=== PATIENT | male | born 1955 | race Caucasian/White ===

== ENCOUNTER 2016-10-05 12:53 | Emergency (ER) | payer BC ==
[~2016-10-05] VITALS: Ht 185.4 cm; Wt 78.7 kg
[2016-10-05 12:57] VITALS: TEMP 36.7; Ht 185.4 cm; Wt 78.7 kg
[2016-10-05] MEDS ORDERED: ESCI10TA17 PO (13:19)
[2016-10-05] MEDS ORDERED: SODIUM CHLORIDE 0.9% 1000ML 1,000 ML IV STA (13:45)
[2016-10-05] MEDS ORDERED: ONDANSETRON INJ 2 MG/ML 2 ML VIAL IV STA (13:45)
[2016-10-05] MEDS ORDERED: MoRPHine SULFATE 10 MG/ML CARP/VIAL IV PRN (13:45)
[2016-10-05 13:59] LABS: BASO % 0.2 %; BASO ABS # 0.02 K/uL (0-0.2); COMPLETE YES; EOS % 0.7 %; HEMATOCRIT 46.4 % (42-52); IG% 0.2 %; LYMPH ABS # 1.39 K/uL (1.2-3.4); MEAN CELL VOLUME 85.3 fL (80-100); MEAN CORPUSCULAR HEMOGLOBIN 30.5 pg (25-34); MEAN CORPUSCULAR HGB CONC 35.8 g/dl (32-36); MEAN PLATELET VOLUME 8.9 fL (7.4-10.4); MONO % 15.3 %; NEUT % 66.6 %; PLATELET COUNT 183 K/uL (130-400); RED BLOOD COUNT 5.44 M/uL (4.7-6.1); WHITE BLOOD COUNT 8.16 K/uL (4.8-10.8)
[2016-10-05] MEDS ORDERED: OPTIRAY 320 IV PRN (14:00)
[2016-10-05 14:08] LABS: BUN/CREATININE RATIO 26.3 (10-20); CALCIUM 9.4 mg/dl (8.5-10.1); CREATININE 1.1 mg/dl (0.60-1.40)
[2016-10-05 14:13] LABS: URINE APPEARANCE TURBID (CLEAR); URINE BILIRUBIN NEG (NEG); URINE COLOR DK YELLOW; URINE EPITHELIAL CELL AUTO 0-5 /lpf (0-5); URINE NITRITE NEG (NEG); UROBILINOGEN NEG (NEG)
[2016-10-05 14:20] LABS: MANUAL MICROSCOPIC REQUIRED? NO; REVIEW REQ? NO
--- NOTE | 2016-10-05 17:00 | DIAGNOSTIC IMAGING REPORT ---
CT ABD/PELVIS IV AND ORAL CONT CLINICAL HISTORY: ABDOMINAL PAIN/GI COMPARISON STUDY: None TECHNIQUE: Following the IV administration of 115 mL of Optiray-320, CT scan of the abdomen and pelvis was performed from the lung bases to the proximal femurs. Images are reviewed in the axial, sagittal, and coronal planes. IV contrast was administered without complication. CT DOSE: 470.66 mGy.cm FINDINGS: Lower chest: There are mild dependent atelectatic changes. Liver: There is hepatic steatosis. No focal masses are visualized. Gallbladder: Surgically absent Spleen: Normal in size and attenuation. Pancreas: Unremarkable. Adrenal glands: Unremarkable. Kidneys: There is a 3 cm right renal cyst. No solid renal masses are visualized. There is no hydronephrosis. Bowel: There are no transition zones indicate bowel obstruction. There is no evidence of acute diverticulitis. Terminal ileum appears normal. There are no findings to indicate acute appendicitis. Peritoneum: There is no intraperitoneal free air or abdominal ascites. There are small fat-containing inguinal hernias versus lipomatous inguinal canals Vasculature: The abdominal aorta is normal in course and caliber. Adenopathy: None. Pelvic viscera: The bladder, and pelvic viscera are unremarkable. Skeletal structures: No destructive osseous lesions are seen. IMPRESSION: 1. No evidence of bowel obstruction. No evidence of free air 2. No evidence of acute diverticulitis 3. No evidence of acute appendicitis 4. Hepatic steatosis Electronically signed by: Nestor Turcios M.D. 10/05/2016 4:58 PM Dictated Date/Time: 10/05/2016 4:53 PM
[2016-10-05 17:29] VITALS: BP 138/77; PULSE 86; O2SAT 96
--- NOTE | 2016-10-05 20:35 | EMERGENCY ROOM VISIT NOTE ---
ED Visit Note First contact with patient: 13:00 Chief Complaint: Abdominal pain. History of Present Illness: Mr. Laws is a 61 year-old white male complaining of left lower quadrant abdominal pain. Historically patient reports Patient reports ongoing symptoms since Tuesday, 4 days ago. He reports he was working outside for extended period time in the sun and when he went back into the house 5-6 hours later he reports he was fatigued and was nauseated. For 2 days he reports having these waves of sensations of not feeling well. Then 2 days ago he started experiencing left lower quadrant abdominal pain. Since that time the pain has been constant but has waxed and waned in intensity once again in what he describes as waves. He reports his underlying pain as an achy pressure sensation just left of the umbilicus in the mid quadrant and then his waves, it become sharp in nature. Currently he rates his discomfort 3/10. At its worse he rates his discomfort 10/10. His pain is nonradiating. His pain worsens with palpation in bowel movements. He has not identified any alleviating factors related to the pain. Associated with his pain he reports he has been having intermittently runny stools but then also he strains to move his bowels and sometimes they are described as thin and stringy. He has not taken any medication for pain prior to arrival at the hospital. Associated with his pain he reports he's had a mild decrease in appetite and has been nauseated but has not vomited. Patient denies skin eruptions, skin color changes, upper respiratory tract symptoms, shortness of breath, chest pain, rectal bleeding, black/tarry stools, urinary symptoms, hematuria, back/flank pain. Review of Systems: As noted above in history of present illness. All body systems were reviewed and found to be negative as noted above. Past Medical History: Patient denies. Current Medications: Lexapro. Allergies to Medications: Patient denies. Social History: Patient is currently employed; he feels safe in his home environment; he denies tobacco and alcohol use. Physical Examination: Vital Signs: Date Time Temp Pulse Resp B/P (MAP) Pulse Ox O2 Delivery O2 Flow Rate FiO2 10/05/16 17:29 86 20 138/77 96 Room Air 10/05/16 15:33 87 17 149/83 98 Room Air 10/05/16 14:38 78 20 97 10/05/16 14:31 137/83 6/13/17 14:23 77 13 97 10/05/16 14:08 85 21 97 10/05/16 14:01 159/92 10/05/16 13:53 90 20 95 10/05/16 13:38 95 23 96 10/05/16 13:31 100/78 10/05/16 13:23 100 18 94 10/05/16 13:20 99 10/05/16 13:17 131/94 10/05/16 12:57 36.7 116 18 136/78 97 Room Air GENERAL: 61-year-old male in mild distress due to pain, nontoxic-appearing, afebrile and hemodynamically stable. NEUROLOGICAL: Awake, alert and oriented to person, place and time. Answering questions appropriately and following commands. Normal gait. Good hand eye coordination. SKIN: Warm, dry and pink. No soft tissue eruptions or trauma noted. HEENT: Atraumatic and normocephalic. PERRL. Sclera white and conjunctiva pink. Oral cavity moist and pink. Pharynx is nonerythematous or edematous. Speech normal. No lymphadenopathy. Trachea midline. No jugular venous distention. BACK: No tenderness over the bony spine. No CVA tenderness. THORAX: Lungs sounds are clear to auscultation and equal bilaterally with symmetrical chest wall. No wheezing, rales or rhonchi. No crepitus, tenderness , subcutaneous air or deformities noted. HEART: Regular rate and rhythm. No gallops, rubs or murmurs are appreciated. ABDOMEN: Flat and soft with moderate tenderness and guarding when palpating just lateral to the mid umbilicus on the left. There is also moderate tenderness without guarding in the left lower quadrant. Positive bowel sounds in all quadrants. No rigidity or organomegaly. EXTREMITIES: Moves all extremities well on command and with purpose. All distal neurovascular statuses are intact and equal bilaterally. ED Course: Patient is assessed as noted above. Laboratory Testing: Test 10/05/16 13:25 Range/Units White Blood Count 8.16 4.8-10.8 K/uL Red Blood Count 5.44 4.7-6.1 M/uL Hemoglobin 16.6 14.0-18.0 g/dL Hematocrit 46.4 42-52 % Mean Corpuscular Volume 85.3 80-100 fL Mean Corpuscular Hemoglobin 30.5 25-34 pg Mean Corpuscular Hemoglobin Concent 35.8 32-36 g/dl Platelet Count 183 130-400 K/uL Mean Platelet Volume 8.9 7.4-10.4 fL Neutrophils (%) (Auto) 66.6 % Lymphocytes (%) (Auto) 17.0 % Monocytes (%) (Auto) 15.3 % Eosinophils (%) (Auto) 0.7 % Basophils (%) (Auto) 0.2 % Neutrophils # (Auto) 5.42 1.4-6.5 K/uL Lymphocytes # (Auto) 1.39 1.2-3.4 K/uL Monocytes # (Auto) 1.25 0.11-0.59 K/uL Eosinophils # (Auto) 0.06 0-0.5 K/uL Basophils # (Auto) 0.02 0-0.2 K/uL RDW Standard Deviation 41.2 36.4-46.3 fL RDW Coefficient of Variation 13.2 11.5-14.5 % Immature Granulocyte % (Auto) 0.2 % Immature Granulocyte # (Auto) 0.02 0.00-0.02 K/uL Urine Color DK YELLOW Urine Appearance TURBID CLEAR Urine pH 5.0 4.5-7.5 Urine Specific [place] 1.030 1.000-1.030 Urine Protein NEG NEG Urine Glucose (UA) NEG NEG Urine Ketones TRACE NEG Urine Occult Blood TRACE NEG Urine Nitrite NEG NEG Urine Bilirubin NEG NEG Urine Urobilinogen NEG NEG Urine Leukocyte Esterase NEG NEG Urine WBC (Auto) 1-5 0-5 /hpf Urine RBC (Auto) 0-4 0-4 /hpf Urine Hyaline Casts (Auto) 1-5 0-5 /lpf Urine Epithelial Cells (Auto) 0-5 0-5 /lpf Urine Bacteria (Auto) NEG NEG Sodium Level 141 136-145 mmol/L Potassium Level 4.0 3.5-5.1 mmol/L Chloride Level 107 98-107 mmol/L Carbon Dioxide Level 25 21-32 mmol/L Anion Gap 9.0 3-11 mmol/L Blood Urea Nitrogen 29 7-18 mg/dl Creatinine 1.10 0.60-1.40 mg/dl Est Creatinine Clear Calc Drug Dose 76.5 ml/min Estimated GFR () 82.4 Estimated GFR (Non- 71.1 BUN/Creatinine Ratio 26.3 10-20 Random Glucose 117 70-99 mg/dl Calcium Level 9.4 8.5-10.1 mg/dl Total Bilirubin 1.0 0.2-1 mg/dl Direct Bilirubin 0.1 0-0.2 mg/dl Aspartate Amino Transf (AST/SGOT) 34 15-37 U/L Alanine Aminotransferase (ALT/SGPT) 67 12-78 U/L Alkaline Phosphatase 93 45-117 U/L Total Protein 8.0 6.4-8.2 gm/dl Albumin 4.0 3.4-5.0 gm/dl Lipase 399 73-393 U/L Contrast Abdominal/Pelvic CT: Was reviewed by myself and read by the radiologist showing no evidence of bowel obstruction, free air, acute diverticulitis, acute appendicitis. Hepatic steatosis. On my review the CT scan he appeared to have increased fecal load. Patient's medications were reviewed by myself. Patient was hydrated with normal saline and received 4 mg of morphine IV for pain and 4 mg of Zofran IV. Patient was reassessed multiple times during his stay in the emergency department. Patient's case was reviewed with Dr. Amaya; we agreed on diagnostic approach, treatment, disposition and plan. Patient was educated about today's findings and instructed on his treatment plan ; he verbalizes understanding and agreement with this plan. Clinical Impression: Left lower quadrant abdominal pain. Increased fecal load. Decision-Making: Initially my differential diagnosis I considered diverticulitis , bowel obstruction, perforated viscus, constipation, pancreatitis, kidney stone and other causes. Disposition: Patient discharged home in stable condition accompanied by his ; prior to departure she was reassessed and subjectively reported he was feeling much better and rated his discomfort 1/10. Plan: Patient was encouraged to alternate ibuprofen and acetaminophen as needed for pain. Patient was encouraged to use OTC Colace once a day. Patient was encouraged to increase dietary fiber including fruits, vegetables and whole bran foods Patient was encouraged to follow-up with personal physician for recheck in 2-3 days. Patient was encouraged return the ED for worsening symptoms, uncontrolled vomiting, bloody stools, black/tarry stools fevers, or any new/concerning symptoms.
== END 2016-10-05 17:57 | disposition home or self-care (01) ==
LOC: C.EDB 12:55
DX: R10.32 Left lower quadrant pain (principal); Z79.899 Other long term (current) drug therapy

== ENCOUNTER 2016-10-17 11:11 | Emergency (ER) | payer BC ==
[~2016-10-17] VITALS: Ht 185.4 cm; Wt 79.2 kg
[~2016-10-17 11:11] MED LIST: ESCI10TA17 PO
[2016-10-17 11:14] VITALS: TEMP 36.7; Ht 185.4 cm; Wt 79.2 kg
[2016-10-17] MEDS ORDERED: SODIUM CHLORIDE 0.9% 1000ML 1,000 ML IV STA (11:34)
[2016-10-17] MEDS ORDERED: KETOROLAC TROMETHAMINE 30 MG/ML VIAL IV STA (11:34)
[2016-10-17] MEDS ORDERED: ONDANSETRON INJ 2 MG/ML 2 ML VIAL IV STA (11:34)
[2016-10-17 12:06] LABS: BASO % 0.2 %; BASO ABS # 0.02 K/uL (0-0.2); COMPLETE YES; EOS % 0.9 %; HEMATOCRIT 43.7 % (42-52); IG% 0.4 %; LYMPH % 7.2 %; LYMPH ABS # 0.71 K/uL (1.2-3.4); MEAN CELL VOLUME 87.8 fL (80-100); MEAN CORPUSCULAR HEMOGLOBIN 29.9 pg (25-34); MEAN CORPUSCULAR HGB CONC 34.1 g/dl (32-36); MEAN PLATELET VOLUME 8.6 fL (7.4-10.4); MONO % 6.8 %; NEUT % 84.5 %; PLATELET COUNT 234 K/uL (130-400); RED BLOOD COUNT 4.98 M/uL (4.7-6.1)
[2016-10-17 12:18] LABS: BUN/CREATININE RATIO 20.8 (10-20); CREATININE 1.1 mg/dl (0.60-1.40); POTASSIUM 4.3 mmol/L (3.5-5.1)
--- NOTE | 2016-10-17 12:41 | DIAGNOSTIC IMAGING REPORT ---
Hernia ABDOMEN FOR HERNIA CLINICAL HISTORY: L groin pain pain TECHNIQUE: Ultrasound COMPARISON STUDY: None FINDINGS: Reducible fat-containing left inguinal hernia. No evidence of bowel containment. IMPRESSION: Reducible fat-containing left inguinal hernia. No evidence of bowel containment. Electronically signed by: Kentrell Ramires M.D. 10/17/2016 12:40 PM Dictated Date/Time: 10/17/2016 12:39 PM
[2016-10-17 13:47] LABS: URINE APPEARANCE CLOUDY (CLEAR); URINE COLOR DK YELLOW; URINE EPITHELIAL CELL AUTO 20-30 /lpf (0-5); URINE NITRITE NEG (NEG); URINE SPECIFIC GRAVITY 1.027 (1.000-1.030); UROBILINOGEN NEG (NEG); ZZUR CULT IF INDIC CLEAN CATCH NO
[2016-10-17 14:04] LABS: MANUAL MICROSCOPIC REQUIRED? NO; REVIEW REQ? NO
[2016-10-17 14:05] LABS: URINE BILIRUBIN NEG (NEG)
[2016-10-17] MEDS ORDERED: DOXYCYCLINE HYCLATE 100 MG CAP PO ONE (14:30)
[2016-10-17] MEDS ORDERED: DOXY100C PO (14:31)
[2016-10-17 15:06] VITALS: BP 138/84; PULSE 89; O2SAT 96
--- NOTE | 2016-10-17 16:53 | EMERGENCY ROOM VISIT NOTE ---
History Report prepared by Braulio: Tory Cabrera Under the Supervision of: Dr. Andrews Andrse D.O. First contact with patient: 11:18 Chief Complaint: GI ASSESSMENT Stated Complaint: PAIN/ACHE History of Present Illness The patient is a 61 year old male who presents to the Emergency Room with complaints of constant achiness beginning 5 days ago. The patient states that he was seen here on the for left lower quadrant pain and had a CT of the abdomen/pelvis that was normal. He notes that he was started Colace and after leaving the hospital he reports that he had relief of his pain with the medication. He states that he had improvement of his symptoms on the following day and left for a vacation in [place] 2 days following his visit but stopped taking the Colace when he had to fly. He reports that he has had two 3 day episodes of extreme fatigue and tiredness and slept for those days. The patient notes that his pain is improved after he has a bowel movement but is worsened during the bowel movement. He states that straining causes left groin pain and when he eats he experiences LLQ pain but has not had any today. He notes that he has been avoiding food over the last few weeks to avoid the left lower quadrant pain. The patient complains of tiredness, right ear pain and a rash on his back that he noticed this morning. He notes that the rash is not painful or itchy. He denies any itchiness, new medications, new foods, blood in the stool, current abdominal pain, urinary symptoms, cough, runny nose. He states that he has not pulled any ticks of of him and does not spend too much time outside. The patient notes that his last bowel movement was this morning and he has had a bowel movement almost every day in the last week. Source of History: patient Onset: 5 days ago Position: other (global) Quality: other (achiness) Timing: constant Associated Symptoms: No abdominal pain, No urinary symptoms Note: The patient complains of tiredness, right ear pain and a rash on his back that he noticed this morning. He denies any itchiness, new medications, new foods, blood in the stool, Review of Systems See HPI for pertinent positives & negatives. A total of 10 systems reviewed and were otherwise negative. Past Medical & Surgical Medical Problems: (1) Anxiety Family History Patient reports no known family medical history. Social History Smoking Status: Never Smoker Marital Status: Housing Status: lives with significant other Occupation Status: retired Current/Historical Medications Scheduled Doxycycline Hyclate (Vibramycin), 100 MG PO BID Escitalopram (Lexapro), 10 MG PO HS Allergies Coded Allergies: No Known Allergies (Unverified , 10/17/16) Physical Exam Vital Signs Date Time Temp Pulse Resp B/P (MAP) Pulse Ox O2 Delivery O2 Flow Rate FiO2 10/17/16 15:06 89 17 138/84 96 10/17/16 13:40 85 17 123/76 95 Room Air 10/17/16 12:10 89 18 135/84 96 Room Air 10/17/16 11:14 36.7 116 18 112/70 99 Room Air Physical Exam GENERAL: sitting up in bed, alert, well appearing, well nourished, no distress, non-toxic EYE EXAM: normal conjunctiva, PERRL and EOM's intact OROPHARYNX: no exudate, no erythema, lips, buccal mucosa, and tongue normal and mucous membranes are moist NECK: supple, no nuchal rigidity, no adenopathy, non-tender LUNGS: Clear to auscultation. Normal chest wall mechanics HEART: no murmurs, S1 normal and S2 normal ABDOMEN: abdomen soft, non-tender, normo-active bowel sounds, no masses, no rebound or guarding. BACK: Back is symmetrical on inspection and there is no deformity, no midline tenderness, no CVA tenderness. SKIN: Several erythematous circular lesions with circular clearing, no rashes on palms or soles UPPER EXTREMITIES: upper extremities are grossly normal. LOWER EXTREMITIES: No pitting edema. NEURO EXAM: Normal sensorium, cranial nerves II-XII grossly intact, normal speech, no gross weakness of arms, no gross weakness of legs. : Normal external circumcised genitalia testicle are nontender no appreciable hernia no penile discharge Medical Decision & Procedures ER Provider Diagnostic Interpretation: Radiology results as stated below per my review and the radiologist's interpretation: Hernia ABDOMEN FOR HERNIA FINDINGS: Reducible fat-containing left inguinal hernia. No evidence of bowel containment. IMPRESSION: Reducible fat-containing left inguinal hernia. No evidence of bowel containment. Electronically signed by: Kentrell Ramires M.D. 10/17/2016 12:40 PM Dictated Date/Time: 10/17/2016 12:39 PM Laboratory Results 10/17/16 11:50 Red Blood Count 4.98, Mean Corpuscular Volume 87.8, Mean Corpuscular Hemoglobin 29.9, Mean Corpuscular Hemoglobin Concent 34.1, Mean Platelet Volume 8.6, Neutrophils (%) (Auto) 84.5, Lymphocytes (%) (Auto) 7.2, Monocytes (%) (Auto) 6.8, Eosinophils (%) (Auto) 0.9, Basophils (%) (Auto) 0.2, Neutrophils # (Auto) 8.37, Lymphocytes # (Auto) 0.71, Monocytes # (Auto) 0.67, Eosinophils # (Auto) 0.09, Basophils # (Auto) 0.02 10/17/16 11:50 Test 10/17/16 11:50 10/17/16 13:37 White Blood Count 9.90 K/uL (4.8-10.8) Red Blood Count 4.98 M/uL (4.7-6.1) Hemoglobin 14.9 g/dL (14.0-18.0) Hematocrit 43.7 % (42-52) Mean Corpuscular Volume 87.8 fL (80-100) Mean Corpuscular Hemoglobin 29.9 pg (25-34) Mean Corpuscular Hemoglobin Concent 34.1 g/dl (32-36) Platelet Count 234 K/uL (130-400) Mean Platelet Volume 8.6 fL (7.4-10.4) Neutrophils (%) (Auto) 84.5 % Lymphocytes (%) (Auto) 7.2 % Monocytes (%) (Auto) 6.8 % Eosinophils (%) (Auto) 0.9 % Basophils (%) (Auto) 0.2 % Neutrophils # (Auto) 8.37 K/uL (1.4-6.5) Lymphocytes # (Auto) 0.71 K/uL (1.2-3.4) Monocytes # (Auto) 0.67 K/uL (0.11-0.59) Eosinophils # (Auto) 0.09 K/uL (0-0.5) Basophils # (Auto) 0.02 K/uL (0-0.2) RDW Standard Deviation 43.0 fL (36.4-46.3) RDW Coefficient of Variation 13.4 % (11.5-14.5) Immature Granulocyte % (Auto) 0.4 % Immature Granulocyte # (Auto) 0.04 K/uL (0.00-0.02) Anion Gap 6.0 mmol/L (3-11) Est Creatinine Clear Calc Drug Dose 77.0 ml/min Estimated GFR () 82.4 Estimated GFR (Non- 71.1 BUN/Creatinine Ratio 20.8 (10-20) Calcium Level 9.0 mg/dl (8.5-10.1) Total Bilirubin 0.8 mg/dl (0.2-1) Direct Bilirubin 0.1 mg/dl (0-0.2) Aspartate Amino Transf (AST/SGOT) 23 U/L (15-37) Alanine Aminotransferase (ALT/SGPT) 55 U/L (12-78) Alkaline Phosphatase 82 U/L (45-117) Total Protein 7.5 gm/dl (6.4-8.2) Albumin 3.5 gm/dl (3.4-5.0) Lipase 151 U/L (73-393) Urine Color DK YELLOW Urine Appearance CLOUDY (CLEAR) Urine pH 5.0 (4.5-7.5) Urine Specific Clear 1.027 (1.000-1.030) Urine Protein TRACE (NEG) Urine Glucose (UA) NEG (NEG) Urine Ketones TRACE (NEG) Urine Occult Blood NEG (NEG) Urine Nitrite NEG (NEG) Urine Bilirubin NEG (NEG) Urine Urobilinogen NEG (NEG) Urine Leukocyte Esterase NEG (NEG) Urine WBC (Auto) 1-5 /hpf (0-5) Urine RBC (Auto) 0-4 /hpf (0-4) Urine Hyaline Casts (Auto) 10-30 /lpf (0-5) Urine Epithelial Cells (Auto) 20-30 /lpf (0-5) Urine Bacteria (Auto) NEG (NEG) Laboratory results per my review. Medications Administered Medications (Trade) Dose Ordered Sig/Connie Route Start Time Stop Time Status Last Admin Dose Admin Sodium Chloride 1,000 ml @ 999 mls/hr Q1H1M STAT IV 10/17/16 11:34 10/17/16 12:34 DC 10/17/16 12:03 999 MLS/HR Ondansetron HCl (Zofran Inj) 4 mg NOW STAT IV 10/17/16 11:34 10/17/16 11:36 DC 10/17/16 12:03 4 MG Ketorolac Tromethamine (Toradol Inj) 30 mg NOW STAT IV 10/17/16 11:34 10/17/16 11:36 DC 10/17/16 12:03 30 MG Doxycycline Hyclate (Vibramycin Cap) 100 mg ONE ONCE PO 10/17/16 14:30 10/17/16 14:31 DC 10/17/16 15:02 100 MG ED Course ED COURSE: Vital signs were reviewed and showed tachycardia The patients medical record was reviewed The above diagnostic studies were performed and reviewed. ED treatments and interventions as stated above. 1118: The patient was evaluated in room B10. A complete history and physical examination was performed. 1332: I reevaluated and updated the patient. 1134: Toradol Inj 30mg IV, Zofran Inj 4mg IV, Sodium Chloride 1000 ml @ 999 mls/ hr IV. 1430: Vibramycin Cap 100mg PO. 1436: Upon reevaluation, the patient is doing well.I discussed my findings with the patient and he understands and agrees with the treatment plan. Based on the patients age, coexisting illnesses, exam and lab findings the decision to treat as an outpatient was made. The patient remained stable while under my care. The patient appeared well at the time of discharge. Medical Decision Differential diagnoses includes but is not limited to gastritis, peptic ulcer disease, GERD, gallbladder disease, pancreatitis, small bowel obstruction, acute coronary syndrome, pericarditis, ischemic bowel, irritable bowel disease, irritable bowel syndrome, appendicitis, diverticulitis, malignancy, hernia, urinary tract infection, torsion, perforation, trauma, infectious. Medication Reconciliation: I attest that I have personally reviewed the patient' s current medication list. Blood pressure screening: Patient was found to have normal blood pressure on screening and does not require follow-up. Patient is a 61-year-old male who presents the ER for multiple complaints. He is complaining of diffuse fatigue associated with a rash along with myalgias and arthralgias that has been present for the past several weeks. He is also complaining of left groin pain which comes and goes when he is straining and left lower abdominal pain which is present with eating. He had a CT of his abdomen pelvis for the left lower quadrant abdominal pain which was unremarkable earlier this month. Ultrasound shows a reducible left inguinal hernia which I was unable to appreciate on my exam. Labs were unremarkable including urine. No gap or acidosis. Lyme IgM was positive. I do believe this is the likely cause of his rash along with arthralgias and myalgias. Doxy was started. Patient was discharged to follow-up with his primary care doctor. He is encouraged to take Colace and senna to stop him from straining causing pain in his left groin from the hernia. Discussed with Pt concerning signs and symptoms to watch out for. Pt was instructed to follow up with their PCP and discussed with the patient their option to return to the ED at anytime for persistent or worsening symptoms. The appropriate anticipatory guidance and out- patient management, including indications for return to the emergency department , were explained at length to the patient and understood. Impression Primary Impression: Lyme disease Additional Impression: Hernia Scribe Attestation The scribe's documentation has been prepared under my direction and personally reviewed by me in its entirety. I confirm that the note above accurately reflects all work, treatment, procedures, and medical decision making performed by me. Departure Information Dispostion Home / Self-Care Prescriptions Doxycycline Hyclate (VIBRAMYCIN) 100 Mg Cap 100 MG PO BID for 21 Days, CAP Prov: Andrews Andres, DO 10/17/16 Referrals No Doctor, Assigned (PCP) Forms HOME CARE DOCUMENTATION FORM, IMPORTANT VISIT INFORMATION Patient Instructions Borrelia Antibody Blood, ED Bite Tick Abx Tx, My [facility] Additional Instructions Please follow up with your primary care doctor with in the next 24 hours. Any worsening of your symptoms, please return to the ED immediately. This includes fevers greater than 100.4, confusion, stiff neck, unable to eat or drink, severe persistent pain in left lower groin, mass in left groin which is persistent, or any other concerning signs or symptoms from your standpoint. Please take antibiotics as prescribed. Please refrain from being in the sun and drinking alcohol while taking doxycycline. Please try to eat prior to taking this medication. Problem Qualifiers
[2016-10-20 22:59] LABS: 18KDIGG BAND REACTIVE (NONREACTIVE); 23KDIGG BAND REACTIVE (NONREACTIVE); 23KDIGM BAND REACTIVE (NONREACTIVE); 28KDIGG BAND NONREACTIVE (NONREACTIVE); 30KDIGG BAND NONREACTIVE (NONREACTIVE); 39KDIGG BAND REACTIVE (NONREACTIVE); 39KDIGM BAND NONREACTIVE (NONREACTIVE); 41KDIGG BAND REACTIVE (NONREACTIVE); 41KDIGM BAND REACTIVE (NONREACTIVE); 45KDIGG BAND REACTIVE (NONREACTIVE); 58KDIGG BAND REACTIVE (NONREACTIVE); 66KDIGG BAND NONREACTIVE (NONREACTIVE); 93KDIGG BAND NONREACTIVE (NONREACTIVE)
== END 2016-10-17 15:05 | disposition home or self-care (01) ==
LOC: C.EDB 11:13
DX: A69.20 Lyme disease, unspecified (principal); K40.90 Unilateral inguinal hernia, without obstruction or gangrene, not specified as recurrent; F41.9 Anxiety disorder, unspecified; Z79.899 Other long term (current) drug therapy